=== PATIENT | female | born 1990 | race African-American/Black ===

== ENCOUNTER 2017-12-22 18:24 | Emergency (ER) | payer MEDICAID ==
--- NOTE | 2017-12-22 18:46 | EDPHY ---
H & P Time Seen by Provider: 12/22/17 18:28 HPI/ROS: CHIEF COMPLAINT: Vomiting HISTORY OF PRESENT ILLNESS: The patient is a 27-year-old female who [place] out by the [place]. When bystanders tried to wake up she began vomiting. Paramedics were called. She admitted to them that she had been using methamphetamines and synthetic cannabis today. She is tearful and has trouble providing history. She is somewhat disturbed by the fact that the paramedics "took my blood and gave it to him". She denies fever trauma or headache. REVIEW OF SYSTEMS: Unable to obtain secondary to condition EXAM: GENERAL: Disheveled difficulty cooperating with exam HEAD: Atraumatic, normocephalic. EYES: Pupils equal round and reactive to light, extraocular movements intact, sclera anicteric, conjunctiva are normal. ENT: nares patent, oropharynx clear without exudates. Moist mucous membranes. NECK: Normal range of motion, supple without lymphadenopathy or JVD. LUNGS: Breath sounds clear to auscultation bilaterally and equal. No wheezes rales or rhonchi. HEART: Regular rate and rhythm without murmurs, rubs or gallops. ABDOMEN: Soft, nontender, No guarding, no rebound. No masses appreciated. BACK: No CVA tenderness, no spinal tenderness, step-offs or deformities EXTREMITIES: Normal range of motion, no pitting or edema. No clubbing or cyanosis. NEUROLOGICAL: Cranial nerves II through XII grossly intact. Normal speech. 5/ 5 strength, normal movement in all extremities, normal sensation PSYCH: tearful SKIN: Warm, dry, normal turgor, no visible rashes or lesions. Source: Patient Exam Limitations: No limitations - Medical/Surgical History Hx Asthma: No Hx Chronic Respiratory Disease: No Hx Diabetes: No Hx Cardiac Disease: No Hx Renal Disease: No - Family History Significant Family History: No pertinent family hx - Social History Alcohol Use: Occasionally Drug Use: Marijuana, Other Constitutional: Initial Vital Signs Temperature (C) 36.9 C 12/22/17 18:26 Heart Rate 98 18 18:26 Respiratory Rate 18 12/22/17 18:26 Blood Pressure 106/67 12/22/17 18:26 O2 Sat (%) 96 12/22/17 18:26 O2 Delivery Mode Room Air Allergies/Adverse Reactions: Penicillins Allergy (Verified 12/22/17 18:34) Home Medications: Medication Instructions Recorded [place] Carbon[place] 12/22/17 Prozac 12/22/17 Seroquel 12/22/17 Suboxone 12/22/17 Medical Decision Making ED Course/Re-evaluation: 7:50 p.m. the patient is ambulating without difficulty she is eating. She is eager to go home. She has a ride on the way. Will discharge her at this time. Differential Diagnosis: Partial list of the Differential diagnosis considered include but were not limited to; substance abuse, anxiety and although unlikely based on the history and physical exam, I also considered head injury, infection. I discussed these differential diagnoses and the plan with the patient as well as the usual and expected course. The patient understands that the diagnosis is provisional and that in medicine we are not always correct and that further workup is often warranted. Usual and customary warnings were given. All of the patient's questions were answered. The patient was instructed to return to the emergency department should the symptoms at all worsen or return, otherwise to followup with the physician as we discussed. - Data Points Laboratory Results: Laboratory Results 12/22/17 18:29 12/22/17 18:29 12/22/17 12/22/17 12/22/17 18:29 18:29 18:29 WBC 7.12 10^3/uL 10^3/uL (3.80-9.50) RBC 4.03 10^6/uL L 10^6/uL (4.18-5.33) Hgb 12.7 g/dL g/dL (12.6-16.3) Hct 36.6 % L % (38.0-47.0) MCV 90.8 fL fL (81.5-99.8) MCH 31.5 pg pg (27.9-34.1) MCHC 34.7 g/dL g/dL (32.4-36.7) RDW 13.1 % % (11.5-15.2) Plt Count 287 10^3/uL 10^3/uL (150-400) MPV 9.4 fL fL (8.7-11.7) Neut % (Auto) 56.8 % % (39.3-74.2) Lymph % (Auto) 28.2 % % (15.0-45.0) [place] % (Auto) 13.9 % H % (4.5-13.0) Eos % (Auto) 0.4 % L % (0.6-7.6) Baso % (Auto) 0.6 % % (0.3-1.7) Nucleat RBC Rel Count 0.0 % % (0.0-0.2) Absolute Neuts (auto) 4.04 10^3/uL 10^3/uL (1.70-6.50) Absolute Lymphs (auto) 2.01 10^3/uL 10^3/uL (1.00-3.00) Absolute Monos (auto) 0.99 10^3/uL H 10^3/uL (0.30-0.80) Absolute Eos (auto) 0.03 10^3/uL 10^3/uL (0.03-0.40) Absolute Basos (auto) 0.04 10^3/uL 10^3/uL (0.02-0.10) Absolute Nucleated RBC 0.00 10^3/uL 10^3/uL (0-0.01) Immature Gran % 0.1 % % (0.0-1.1) Immature Gran # 0.01 10^3/uL 10^3/uL (0.00-0.10) Sodium 138 mEq/L mEq/L (135-145) Potassium 4.0 mEq/L mEq/L (3.3-5.0) Chloride 102 mEq/L mEq/L (97-110) Carbon Dioxide 28 mEq/l mEq/l (22-31) Anion Gap 8 mEq/L mEq/L (8-16) BUN 19 mg/dL mg/dL (7-23) Creatinine 0.8 mg/dL mg/dL (0.6-1.0) Estimated GFR > 60 Glucose 70 mg/dL mg/dL (70-100) Calcium 9.9 mg/dL mg/dL (8.5-10.4) Beta HCG, Qual NEGATIVE Ethyl Alcohol < 10 mg/dL mg/dL (0-10) Departure - Departure Disposition: Home, Routine, Self-Care Clinical Impression: Polysubstance abuse Condition: Fair Instructions: Polysubstance Abuse (ED) Referrals: Patient,NotPresent [Unknown] - As per Instructions
[2017-12-22 18:57] LABS: PLATELET COUNT 287 10^3/uL (150-400)
[2017-12-22 19:39] VITALS: BP 101/73
== END 2017-12-22 20:09 | disposition home or self-care (01) ==
DX: F19.10 Other psychoactive substance abuse, uncomplicated (principal)
CPT/HCPCS: G0480